=== PATIENT | male | born 1970 | race Caucasian/White ===

== ENCOUNTER 2016-09-17 18:11 | Emergency (ER) | payer OTHER ==
[~2016-09-17] VITALS: Ht 180.3 cm; Wt 106.6 kg
[2016-09-17] MEDS ORDERED: NORCO, ANEXSIA 5/325MG TABLET (HYDROcodone/ACETAMINOPHEN) PO ONE (18:45)
[2016-09-17] MEDS ORDERED: ACETAMINOPHEN 325 MG TAB As Ordered ONE (18:50)
[2016-09-17] MEDS: ACETAMINOPHEN 325 MG TAB PO ONE (18:54)
[2016-09-17 20:22] VITALS: BP 131/83
--- NOTE | 2016-09-17 20:23 | REP ---
Right hand series: Four views. History: Swelling after injury. Question fracture. Findings: Four views of the right hand demonstrate some dorsal soft tissue swelling at the carpus. Overall mineralization pattern is normal. No fracture is seen. Impression: No fracture noted. Signed by Trip Ramirez MD 09/18/2016 07:46 A
--- NOTE | 2016-09-17 20:28 | REP ---
Right wrist series: Four views. History: Injury and swelling. Findings: Four views of the right wrist demonstrate soft tissue swelling dorsally over the carpus. No fracture is seen. Bones, joints and soft tissues are unremarkable. Impression: Dorsal swelling over the carpus. No fracture seen. Signed by Trip Ramirez MD 09/18/2016 07:46 A
--- NOTE | 2016-09-17 20:29 | REP ---
Right forearm: Two views. History: Injury and swelling. Findings: Two views of the right forearm demonstrate normal bones, joints, and soft tissues. No fracture or subluxation is seen. Impression: Negative right forearm. Signed by Trip Ramirez MD 09/18/2016 07:46 A
== END 2016-09-17 20:46 | disposition home or self-care (01) ==
LOC: M ED 18:43
DX: S63.501A Unspecified sprain of right wrist, initial encounter (principal); W01.198A Fall on same level from slipping, tripping and stumbling with subsequent striking against other object, initial encounter; Y92.838 Other recreation area as the place of occurrence of the external cause; Y93.23 Activity, snow (alpine) (downhill) skiing, snowboarding, sledding, tobogganing and snow tubing; Y99.9 Unspecified external cause status